=== PATIENT | male | born 1980 | race Caucasian/White ===

== ENCOUNTER 2020-11-05 10:22 | Day surgery (SDC) | payer BC ==
[2020-11-01 12:31] VITALS: BMI 27.8
[2020-11-05 10:46] VITALS: TEMP 97.8
[2020-11-05 13:00] VITALS: BP 118/61; PULSE 66
== END 2020-11-05 13:10 | disposition home or self-care (01) ==
LOC: FASU-ENDO 10:22
PROVIDERS: ATTEND Internal Medicine Gastroenterology
PROC: 0DB68ZX Excision of Stomach, Via Natural or Artificial Opening Endoscopic, Diagnostic (ICD-10-PCS; 2020-11-05)
PROC: 0DB38ZX Excision of Lower Esophagus, Via Natural or Artificial Opening Endoscopic, Diagnostic (ICD-10-PCS; 2020-11-05)
PROC: 0DB98ZX Excision of Duodenum, Via Natural or Artificial Opening Endoscopic, Diagnostic (ICD-10-PCS; principal; 2020-11-05 12:10)
DX: K29.50 Unspecified chronic gastritis without bleeding (principal); K20.90 Esophagitis, unspecified without bleeding; R12 Heartburn; K31.9 Disease of stomach and duodenum, unspecified
CPT/HCPCS: 88305-TC; 88342-TC